=== PATIENT | male | born 1940 | race Caucasian/White ===

== ENCOUNTER → 2016-09-11 20:26 | Outpatient (CLI) | payer MEDICARE ==
[2015-04-07 12:48] VITALS: BMI 22.7
[~2016-09-11 20:26] MED LIST: BACTROBAN CREAM15 GM TOPICAL; CLARITIN 10 MG10 MG PO; CLEOCIN T30 GM TOPICAL; DOXYCYCLINE HY100 M2 PO; FLOMAX0.4 MG PO; FLUTICASONE PRO16 GM NASAL; HYDROCODONE-APA1 TAB PO; METROGEL 0.75 %45 GM TOPICAL; MINOCIN50 MG PO; PEPCID40 MG PO; PRILOSEC20 MG PO
== END | disposition home or self-care (01) ==
LOC: D.LABREF 20:26
DX: D49.2 Neoplasm of unspecified behavior of bone, soft tissue, and skin (principal)

== ENCOUNTER → 2016-10-31 10:41 | Outpatient (CLI) | payer MEDICARE ==
[2015-04-07 12:48] VITALS: BMI 22.7
== END | disposition home or self-care (01) ==
LOC: D.US 10:41
DX: N50.89 Other specified disorders of the male genital organs (principal)